=== PATIENT | male | born 1955 | race Hispanic/Latino ===

== ENCOUNTER 2023-05-18 09:28 | Day surgery (SDC) | payer MEDICARE ==
[2023-05-16 11:43] VITALS: BMI 24.8
[2023-05-18] MEDS ORDERED: Bupivacaine 0.25% HCL 30 ML VIAL ONE (10:33)
[2023-05-18] MEDS ORDERED: PROPOFOL 20 ML ONE (10:34)
[2023-05-18] MEDS ORDERED: Ondansetron PF 4 MG/2 ML Vial ONE (10:35)
[2023-05-18] MEDS ORDERED: Dexamethasone 4 mg/ml Vial ONE (10:35)
[2023-05-18] MEDS ORDERED: Lidocaine 1% PF 5 ML VIAL ONE (10:35)
[2023-05-18] MEDS ORDERED: CEFAZOLIN 2 GM VIAL ONE (11:21)
[2023-05-18] MEDS ORDERED: Fentanyl 250 MCG/5 ML VIAL ONE (11:29)
[2023-05-18] MEDS ORDERED: ePHEDrine Sulfate 50 MG/10 ML VIAL ONE (11:59)
[2023-05-18] MEDS ORDERED: Ondansetron PF 4 MG/2 ML Vial IVP PRN (12:15)
[2023-05-18] MEDS ORDERED: Zolpidem Tartrate 5 MG TAB PO PRN (12:15)
[2023-05-18] MEDS ORDERED: Promethazine HCl 25 MG/ML VIAL IM PRN (12:15)
[2023-05-18] MEDS ORDERED: Ropivacaine 0.2% 550 ML 550 ML NERVE BLCK SCH (12:15)
[2023-05-18] MEDS ORDERED: PHENYLEPHRINE-NS 100 MCG/ML 10 ML SYRINGE ONE (13:38)
== END 2023-05-18 15:40 | disposition home or self-care (01) ==
LOC: CSHSDC 09:28
PROVIDERS: ATTEND Podiatrist Foot & Ankle Surgery
PROC: 0SGN04Z Fusion of Left Metatarsal-Phalangeal Joint with Internal Fixation Device, Open Approach (ICD-10-PCS; principal; 2023-05-18)
PROC: 0SPN04Z Removal of Internal Fixation Device from Left Metatarsal-Phalangeal Joint, Open Approach (ICD-10-PCS; 2023-05-18)
DX: T84.84XA Pain due to internal orthopedic prosthetic devices, implants and grafts, initial encounter (principal); M20.5X2 Other deformities of toe(s) (acquired), left foot; E11.9 Type 2 diabetes mellitus without complications; E78.5 Hyperlipidemia, unspecified; Z87.891 Personal history of nicotine dependence; Z96.651 Presence of right artificial knee joint; Z79.84 Long term (current) use of oral hypoglycemic drugs; Z79.899 Other long term (current) drug therapy; Z88.6 Allergy status to analgesic agent; Y79.2 Prosthetic and other implants, materials and accessory orthopedic devices associated with adverse incidents
CPT/HCPCS: 20680; 28750; 73620; A4306; C1713; C1769; C1776; J1100; J2405; J2704; J2795; J3010; S0020